=== PATIENT | female | born 1990 | race Caucasian/White ===

== ENCOUNTER → 2017-09-30 | Outpatient (CLI) | payer BC ==
[2017-10-01 02:07] LABS: EBNA IGG <18.0 U/mL (0.0-17.9)
== END | disposition home or self-care (01) ==
LOC: LAB 12:42
PROVIDERS: ATTEND General Practice
DX: M25.50 Pain in unspecified joint (principal); R53.82 Chronic fatigue, unspecified
CPT/HCPCS: 36415; 86644; 86645; 86663; 86664